=== PATIENT | male | born 2000 | race African-American/Black ===

== ENCOUNTER 2021-08-18 21:10 | Emergency (ER) | payer SELFPAY ==
[2021-08-18] MEDS ORDERED: Dexamethasone 10 MG/ML VIAL ONE (22:11)
== END 2021-08-18 22:23 | disposition home or self-care (01) ==
LOC: ERS 21:10
DX: J02.9 Acute pharyngitis, unspecified (principal)
CPT/HCPCS: 87081; 87430; 99283; J1100

== ENCOUNTER 2021-08-20 08:56 | Emergency (ER) | payer SELFPAY ==
[~2021-08-20 08:56] MED LIST: ISOVUE-370 76%-LOCM 1 ML ONE
[2021-08-20 09:45] LABS: #Eosinphils 0.1 thou/uL (0.0-0.7); #Lymphocytes 2.5 thou/uL (1.20-3.40); #Monocytes 1.3 thou/uL (0.11-0.59); #Neutrophils 10.6 thou/uL (1.40-6.50); %Basophils 0.3 % (0.0-1.0); %Eosinophils 0.4 % (0.0-10.0); %Lymphocytes 16.9 % (28.0-48.0); %Monocytes 8.9 % (0.0-4.0); %Neutrophils 73.5 % (31.0-61.0); Hemoglobin 13.7 g/dL (14.0-18.0); Mean Corpuscular HGB CONC 32.9 g/dL (32.0-36.0); Mean Corpuscular Hemoglobin 30.4 pg (25.0-35.0); Mean Corpuscular Volume 92.4 fL (78.0-98.0); Mean Platelet Volume 7.3 fL (7.4-10.4); Platelet Count 241 thou/uL (130-400); RBC Distribution Width 11.2 % (11.5-14.5); Red Blood Cell (RBC) Count 4.51 mill/uL (4.00-5.20); White Blood Cell (WBC) Count 14.5 thou/uL (4.8-10.8)
[2021-08-20 10:03] LABS: ALT (SGPT) 51 U/L (8-55); AST (SGOT) 37 U/L (5-34); Albumin 4.4 g/dL (3.5-5.0); Alkaline Phosphatase 111 U/L (50-130); Anion Gap 15 mmol/L (10-20); BUN (Urea Nitrogen) 18 mg/dL (8.9-20.6); Bilirubin, Total 0.4 mg/dL (0.2-1.2); Calc. Creatinine Clearance 0 mL/min (70-130); Calcium 9.5 mg/dL (7.8-10.44); Carbon Dioxide 28 mmol/L (22-29); Chloride 101 mmol/L (98-107); Estimated GFR 112; Glucose 97 mg/dL (70-105); Potassium 3.5 mmol/L (3.5-5.1); Protein, Total 7.4 g/dL (6.0-8.3); Sodium 140 mmol/L (136-145)
[2021-08-20] MEDS ORDERED: Dexamethasone 10 MG/ML VIAL ONE (10:54)
[2021-08-20] MEDS ORDERED: cefTRIAXone\\ROCEPHIN 1 GM VIAL ONE (10:54)
[2021-08-20] MEDS ORDERED: Ketorolac Tromethamine 30 MG/ML VIAL ONE (10:54)
[2021-08-20] MEDS ORDERED: methylPREDNISolone Acetate 40 mg/ml Vial IM SCH (11:15)
== END 2021-08-20 12:04 | disposition home or self-care (01) ==
LOC: ERS 08:56
DX: J36 Peritonsillar abscess (principal)
CPT/HCPCS: 36415; 70491; 80053; 85025; 96372; 96374; 96375; J0696; J1100; J1885; J2920; Q9966